=== PATIENT | male | born 1980 | race African-American/Black ===

== ENCOUNTER 2019-05-27 20:04 | Emergency (ER) | payer OTHER ==
[~2019-05-27] VITALS: Ht 193 cm; Wt 113.4 kg
== END 2019-05-27 21:00 | disposition home or self-care (01) ==
LOC: FSED 20:04
DX: T24.211A Burn of second degree of right thigh, initial encounter (principal); T24.212A Burn of second degree of left thigh, initial encounter; T31.0 Burns involving less than 10% of body surface; T65.891A Toxic effect of other specified substances, accidental (unintentional), initial encounter; Y99.0 Civilian activity done for income or pay; E11.65 Type 2 diabetes mellitus with hyperglycemia
CPT/HCPCS: 99283